=== PATIENT | female | born 1980 | race Caucasian/White ===

== ENCOUNTER 2016-11-01 14:37 | Inpatient (IN) | payer OTHER, BC ==
[2016-11-01 15:18] LABS: ROM Internal QC QC Line Present
[2016-11-01] MEDS ORDERED: Betamethasone INJ* 6 MG/ML 5 ML VIAL (30 MG) IM ONE (15:53)
[2016-11-01 16:51] LABS: Hematocrit 42 % (35-47); Hemoglobin 13.8 g/dl (12.0-16.0); Mean Corpuscular HGB Conc 33 g/dl (31-36); Mean Corpuscular Hemoglobin 26 pg (27-31); Mean Corpuscular Volume 79 fL (80-97); Mean Platelet Volume 9 um3 (7.4-10.4); Red Blood Count 5.38 10^6/ul (4.0-5.4); Red Cell Distribution Width 13 % (10.5-15); White Blood Count 8.4 10^3/ul (3.5-10.8)
--- NOTE | 2016-11-01 18:22 | PTEDU ---
Patient Name: LISSET ESPINOZA LISSET ESPINOZA selected video: BBOB: Nurturing Your Gorgeous \T\Growing Baby by to polly trotter on 11/01/2016 at 6:21:21 PM from [email or web address]
--- NOTE | 2016-11-01 18:52 | PTEDU ---
Patient Name: LISSET ESPINOZA LISSET ESPINOZA selected video: BBOB: Bonding Through Infant Massage to view on 11/01/2016 at 6:51: 28 PM from [email or web address]
[2016-11-01] MEDS ORDERED: Ondansetron INJ* 2 MG/ML VIAL IV ONE (19:41)
[2016-11-01] MEDS ORDERED: OBEPIDURAL* 0 ML ONE (19:50)
[2016-11-01] MEDS ORDERED: Oxytocin in LR* 20 UNITS/1,000 ML BAG IVPB ONE (20:28)
[2016-11-01] MEDS ORDERED: Acetaminophen TAB* 325 MG PO PRN (21:16)
[2016-11-01] MEDS ORDERED: Measles, Mumps,Rubella VACC* 0.5 ML/VIAL SUBCUT ONE (21:16)
[2016-11-01] MEDS ORDERED: Witch Hazel PAD* JAR TOPICAL PRN (21:16)
[2016-11-01] MEDS ORDERED: Glycerin ADULT SUPP PR PRN (21:16)
[2016-11-01] MEDS ORDERED: Oxytocin in LR* 20 UNITS/1,000 ML BAG IVPB SCH (22:00)
[2016-11-01] MEDS: Ibuprofen TAB* 600 MG PO PRN (23:15)
[2016-11-01] MEDS: Dibucaine 1% 28.35 GM TUBE PR PRN (23:16)
[2016-11-02] MEDS: Levothyroxine TAB* 100 MCG TAB PO SCH (07:25)
[2016-11-02 08:09] LABS: Hematocrit 37 % (35-47); Hemoglobin 12.1 g/dl (12.0-16.0); Mean Corpuscular HGB Conc 33 g/dl (31-36); Mean Corpuscular Hemoglobin 26 pg (27-31); Mean Corpuscular Volume 79 fL (80-97); Mean Platelet Volume 9 um3 (7.4-10.4); Red Blood Count 4.64 10^6/ul (4.0-5.4); Red Cell Distribution Width 13 % (10.5-15); White Blood Count 17.7 10^3/ul (3.5-10.8)
[2016-11-02] MEDS ORDERED: Simethicone CHEW TAB* 80 MG PO SCH (08:30)
[2016-11-02] MEDS ORDERED: Ferrous Gluconate TAB* 324 MG TAB PO SCH (09:00)
[2016-11-02] MEDS: Ibuprofen TAB* 600 MG PO PRN ×2 (11:48→18:16)
[2016-11-02] MEDS: Docusate CAP* 100 MG PO SCH ×2 (11:48→18:16)
[2016-11-02] MEDS: Dibucaine 1% 28.35 GM TUBE PR PRN (11:49)
[2016-11-03] MEDS: Levothyroxine TAB* 100 MCG TAB PO SCH (05:58)
[2016-11-03] MEDS: Ibuprofen TAB* 600 MG PO PRN ×2 (05:59→13:02)
[2016-11-03 08:27] VITALS: BP 130/78
[2016-11-03] MEDS: Docusate CAP* 100 MG PO SCH (15:28)
== END 2016-11-03 17:30 | DRG 775 ==
LOC: MCHOBOUT 14:37 → MCHOB 15:57
PROVIDERS: ADMIT Midwife; ATTEND Midwife
PROC: 10E0XZZ Delivery of Products of Conception, External Approach (ICD-10-PCS; principal; 2016-11-01)
PROC: 0HQ9XZZ Repair Perineum Skin, External Approach (ICD-10-PCS; 2016-11-01)
DX: O42.013 Preterm premature rupture of membranes, onset of labor within 24 hours of rupture, third trimester (principal); E03.9 Hypothyroidism, unspecified; O70.0 First degree perineal laceration during delivery; O99.284 Endocrine, nutritional and metabolic diseases complicating childbirth; Z3A.35 35 weeks gestation of pregnancy; Z37.0 Single live birth
CPT/HCPCS: 36415; 76815; 84112; 85025; 86850; 86900; 86901; 87070; 88307; 90707; A9270-GY; J0702; J2540